=== PATIENT | male | born 1995 | race Caucasian/White ===

== ENCOUNTER 2019-09-15 09:45 | Emergency (ER) | payer MEDICAID ==
[~2019-09-15] VITALS: Ht 188 cm; Wt 81.6 kg
[2019-09-15 09:45] VITALS: BP_SYST 142
[2019-09-15 11:18] VITALS: BP_SYST 139
== END 2019-09-15 11:19 | disposition home or self-care (01) ==
LOC: SED 09:45
DX: S20.211A Contusion of right front wall of thorax, initial encounter (principal); Z91.013 Allergy to seafood; W22.8XXA Striking against or struck by other objects, initial encounter; Y93.89 Activity, other specified; Y92.89 Other specified places as the place of occurrence of the external cause; Y99.8 Other external cause status
CPT/HCPCS: 71100; 73090; 99284